=== PATIENT | female | born 1995 ===

== ENCOUNTER 2025-01-14 06:00 | Day surgery (SDC) | payer OTHER ==
[2025-01-07 12:18] VITALS: BP 114/77
[~2025-01-14] VITALS: Ht 162.6 cm; Wt 67.6 kg
[2025-01-14] MEDS ORDERED: DEXAMETHASONE SODIUM PHOSPHATE 4 MG/ML VIAL ONE (06:57)
[2025-01-14] MEDS ORDERED: SUGAMMADEX SODIUM 200 MG/2 ML VIAL IV ONE (09:13)
[2025-01-14] MEDS ORDERED: OXYMETAZOLINE HCL 15 ML NASAL DROPS NASAL ONE (09:30)
[2025-01-14] MEDS ORDERED: DEXAMETHASONE SODIUM PHOSPHATE 4 MG/ML VIAL IV ONE (09:30)
[2025-01-14] MEDS ORDERED: NEOMYCIN/BACITRACIN/POLYMYXINB 14 G TUBE TOP ONE (09:45)
== END 2025-01-14 12:35 | disposition home or self-care (01) ==
LOC: CIR.AMB 06:00
PROVIDERS: ATTEND Otolaryngology
DX: J35.1 Hypertrophy of tonsils (principal)